=== PATIENT | female | born 1970 | race Caucasian/White ===

== ENCOUNTER 2018-09-29 13:44 | Outpatient (CLI) | payer MEDICARE, MEDICAID ==
--- NOTE | 2018-09-29 17:51 | MRI ---
MRI RIGHT KNEE WITHOUT CONTRAST: HISTORY: M25.561, right knee pain. COMPARISON: Radiograph from 09/19/2018. FINDINGS: Medial meniscus: Intact. Lateral meniscus: Intact. ACL/PCL/MCL/LCL: Intact. Extensor mechanism: The quadriceps tendon, patella, and patellar tendon are intact. There is lateral subluxation of the patella upon the trochlea. The trochlear groove is flattened. T here is mild superolateral Hoffa's fat pad edema. The tibial tuberosity-trochlear groove distance me asures 17 mm. CARTILAGE Patellofemoral compartment: There is 50% thickness cartilage defect of the lateral patella facet, me asuring 5 mm transverse x 4 mm craniocaudal dimension. There is mild cartilage fraying of the latera l trochlea. Medial compartment: Intact. Lateral compartment: Intact. Bones: There is mild patchy red marrow within the distal femoral metaphysis. No fracture. No malal ignment. Muscles: Normal muscle signal and bulk. Soft tissues: No significant popliteal cyst formation. IMPRESSION: 1. No acute internal derangement of the knee. 2. Evidence of chronic patella maltracking with flattened trochlear groove, increased tibial tubercl e-trochlear groove distance, lateral subluxation of the patella upon the trochlea, and superolateral Hoffa's fat pad edema. 3. A 5 x 4 mm 50% cartilage defect at the lateral patellar facet on axial image 8 of series 4. POS: C
== END 2018-09-29 13:45 | disposition home or self-care (01) ==
LOC: BICMRI 13:44
PROVIDERS: ATTEND Family Medicine
DX: M25.561 Pain in right knee (principal); M25.861 Other specified joint disorders, right knee

== ENCOUNTER 2019-05-07 19:13 | Emergency (ER) | payer MEDICARE, MEDICAID | END 2019-05-07 20:15 | disposition home or self-care (01) | LOC: ERS 19:13 | DX: K11.5 Sialolithiasis (principal); R59.0 Localized enlarged lymph nodes; I10 Essential (primary) hypertension; F17.210 Nicotine dependence, cigarettes, uncomplicated; Z79.899 Other long term (current) drug therapy | CPT/HCPCS: 99283 ==

== ENCOUNTER 2025-06-04 21:22 | Emergency (ER) | payer OTHER ==
[2025-06-04] MEDS ORDERED: HYDROcodone/Acetaminophen 5/325 mg Tablet ONE (22:37)
== END 2025-06-04 22:50 | disposition home or self-care (01) ==
LOC: ERS 21:22
DX: S71.131A Puncture wound without foreign body, right thigh, initial encounter (principal); I10 Essential (primary) hypertension; F17.210 Nicotine dependence, cigarettes, uncomplicated; Z79.899 Other long term (current) drug therapy; W34.00XA Accidental discharge from unspecified firearms or gun, initial encounter
CPT/HCPCS: 99283

== ENCOUNTER 2025-06-27 13:28 | Emergency (ER) | payer OTHER ==
[2025-06-27] MEDS ORDERED: HYDROcodone/Acetaminophen 10/325 mg Tablet ONE (15:58)
[2025-06-27 16:14] LABS: CAUTI Indications for Culture Pelvic or flank pain; Glucose, Urine (Dipstick) Normal (Negative); Leukocyte 75 Leu/uL (Negative); Protein, Urine (Dipstick) Negative (Neg-Trace); RBC/HPF 0-3 HPF (0-3); Specific Gravity, Urine 1.024 (1.002-1.036)
[2025-06-27 16:16] LABS: Bacteria/HPF 1+ HPF (None Seen)
[2025-06-27 16:17] LABS: Urine Culture Reflex No No
[2025-06-27 16:20] LABS: Cocaine Metabolite Screen Negative (Negative); THC/Cannabinoid Screen PRELIM POSITIVE (Negative); Tricyclic Screen Negative (Negative)
[2025-06-27 18:12] LABS: #Basophils 0.06 10x3/uL (0.0-0.2); #Eosinophils 0.18 10x3/uL (0.0-0.7); #Monocytes 0.61 10x3/uL (0.11-0.59); #Neutrophils 5.84 10x3/uL (1.40-6.50); %Basophils 0.6 % (0.0-1.0); %Eosinophils 1.9 % (0.0-10.0); %Lymphocytes 29.9 % (21.0-51.0); %Monocytes 6.4 % (0.0-10.0); %Neutrophils 60.9 % (42.0-75.0); Hematocrit 40.3 % (36.0-47.0); Hemoglobin 12.7 g/dL (12.0-16.0); Mean Corpuscular Hemoglobin 28.1 pg (27.0-31.0); Mean Corpuscular Volume 89.2 fL (78.0-98.0); Platelet Count 362 10x3/uL (130-400); Red Blood Cell (RBC) Count 4.52 mill/uL (4.20-5.40); White Blood Cell (WBC) Count 9.58 10x3/uL (4.8-10.8)
[2025-06-27 18:29] LABS: BHCG - Serum Negative (NEGATIVE); Pregs Control Background? CLEAR/WHITE (CLR/WHITE); Pregs Control Bar Appear? YES (CONTROL BAR)
[2025-06-27 18:36] LABS: Acetaminophen Less than 10 mcg/mL (Less than 10); Salicylate Less than 8.0 mg/dL (Less than 8.0)
[2025-06-27 18:37] LABS: ALT (SGPT) 9 U/L (Less than 34); AST (SGOT) 17 U/L (11-34); Albumin 3.8 g/dL (3.1-4.5); Alkaline Phosphatase 97 U/L (40-110); Anion Gap 14 mmol/L (10-20); BUN (Urea Nitrogen) 23 mg/dL (9.8-20.1); Bilirubin, Total 0.3 mg/dL (0.3-1.2); CK (CPK) 37 U/L (29-168); Calc. Creatinine Clearance 0 mL/min (70-130); Calcium 9.6 mg/dL (7.8-10.44); Carbon Dioxide 24 mmol/L (22-29); Chloride 107 mmol/L (98-107); Globulin 3.4 g/dL (2.4-3.5); Glucose 90 mg/dL (70-105); Potassium 3.6 mmol/L (3.5-5.1); Sodium 141 mmol/L (136-145)
[2025-06-27] MEDS ORDERED: Ibuprofen 200 MG TAB ONE (22:25)
[2025-06-27] MEDS ORDERED: Acetaminophen 500 MG TAB ONE (22:25)
== END 2025-06-28 00:02 ==
LOC: ERS 13:28
DX: R45.851 Suicidal ideations (principal); F43.0 Acute stress reaction; I10 Essential (primary) hypertension; F17.290 Nicotine dependence, other tobacco product, uncomplicated
CPT/HCPCS: 36415; 80053; 80306; 80307; 81001; 82550; 84703; 85025; 93005; 99285

== ENCOUNTER 2025-08-28 19:48 | Emergency (ER) | payer OTHER | END 2025-08-28 22:01 | LOC: ERS 19:48 | DX: Z53.21 Procedure and treatment not carried out due to patient leaving prior to being seen by health care provider (principal) ==